=== PATIENT | female | born 1975 | race Caucasian/White ===

== ENCOUNTER 2016-12-28 20:48 | Emergency (ER) | payer OTHER ==
[~2016-12-28 20:48] MED LIST: ACETAMINOPHEN PO; ACTOS PO; ALBUTEROL SULFAT8 MG PO; ALBUTEROL17 G1 IH; ALBUTEROL17 GM INH; ALL DAY ALLERGY10 M2 PO; AMARYL PO; AMARYL2 MG PO; AMBIEN PO; AMITRIPTYLINE100 MG PO; AMITRYPTYLINE PO; AMOXICILLIN PO; AMOXICILLIN500 M1 PO; ANTIVERT PO; APIDRA (NF100 UNITS/ SUBQ; ASPIRIN PO; ASPIRIN81 M1 PO; ASPIRIN81 M2 PO; ATARAX PO; ATENOLOL PO; ATENOLOL25 MG PO; ATIVAN PO; BACTRIM DS TABL1 TA1 PO; BACTRIM DS TABL1 TA2 PO; BACTRIM DS TABL1 TAB PO; BACTROBAN22 GM TP; BENADRYL PO; BENZTROPINE MESY1 MG PO; CARVEDILOL12.5 MG PO; CELEXA PO; CEPHALEXIN250 MG PO; CETIRIZINE HCL10 MG PO; CETIRIZINE HCL5 MG PO; CHLORTHALIDONE25 MG PO; CLARITIN10 MG PO; COGENTIN PO; COGENTIN1 MG DOB; COGENTIN1 MG PO; COLACE PO; COMBIVENT INH14.7 GM INH; COREG12.5 MG PO; COUMADIN PO; COUMADIN10 MG PO; COUMADIN5 MG PO; CYMBALTA PO; DAKIN'S MODIF1000 ML EXT; DARVOCET-N 1001 TA1 PO; DEPAKOTE PO; DEPAKOTE250 MG PO; DESIPRAMINE HCL50 MG PO; DICLOFENAC PO; DILANTIN PO; DOCUSATE SODIU100 MG PO; DOLOBID500 MG PO; DOXYCYCLINE HY100 M3 PO; DOXYCYCLINE PO; DULERA 100 MCG/13 GM IH; EC-NAPROSYN500 MG PO; ECOTRIN325 MG PO; FLEXERIL PO; FLEXERIL10 MG PO; FLONASE 0.05% N16 G1; FUROSEMIDE40 MG PO; GABAPENTIN800 MG PO; GEODAN PO; GLIMEPIRIDE1 M1 PO; GLIPIZIDE10 MG PO; GLUCOTROL10 MG PO; GLUCOVANCE 5/501 TA1 PO; GLUCOVANCE 5/501 TA3 PO; HALDOL PO; HUMALOG100 U/ML SUBQ; IBUPROFEN PO; IMITREX50 MG PO; K-DUR10 MEQ PO; KEFLEX PO; KEPPRA1000 MG PO; KEPPRA500 MG PO; KEPPRA750 M1 PO; KEPPRA750 MG PO; KETOPROFEN PO; KLONOPIN; KLONOPIN PO; KLONOPIN1 MG PO; KLOR-CON SPRIN10 MEQ PO; LAMICTAL PO; LANTUS100 U/ML SUBQ; LASIX PO; LASIX20 MG PO; LATUDA60 MG PO; LEVEMIR SUBQ; LEVEMIR100 U/ML SQ; LEVEMIR100 UNITS/ SUBQ; LEVETIRACETAM750 M2 PO; LEXAPRO PO; LIPITOR20 MG PO; LISINOPRIL10 MG PO; LOPID600 MG PO; LOPRESSOR; LOVENOX100 MG/ML INJ; LOVENOX120 MG/0.8 INJ; MEDI-MECLIZINE25 M1 PO; METFORMIN HCL1000 M1 PO; MILK OF MAGNESIA PO; MIRTAZAPINE30 MG PO; MOTRIN400 MG PO; MOTRIN600 M1 PO; NAPROSYN250 M1 PO; NAPROXEN PO; NEURONTIN PO; NEURONTIN600 MG DOB; NITROGLYCERIN0.4 MG SL; NITROGYLCERIN; NITROGYLCERIN SUBLINGUAL; NITROQUICK0.4 MG SL; NITROSTAT0.4 MG SL; NOVOLOG100 U/M2 SQ; NOVOLOG100 U/ML SUBQ; ORUDIS75 M1 PO; PERCOCET 10/3251 TAB PO; PERCOCET PO; PERCOCET5/325 PO; PHENERGAN W/CO120 ML PO; PLAVIX PO; POTASSIUM CHLO10 ME1 PO; POTASSIUM CHLO10 MEQ PO; PROLIXIN10 MG; PROVENTIL2 MG PO; PROZAC; PROZAC40 M1 PO; QUETIAPINE FUM200 MG PO; REGLAN5 MG PO; REMERON PO; REMERON45 MG PO; REQUIP1 MG PO; RISPERDAL4 MG PO; RISPERIDONE PO; SEROQUEL; SEROQUEL PO; TEGRETOL PO; THORAZINE200 MG PO; TRAZODONE PO; TRILEPTAL PO; TRILEPTAL300 MG PO; TYLENOL #3 PO; TYLENOL325 M1 PO; TYLOX 5/500 CAP1 CAP PO; VICODIN 5/500 T1 TAB PO; VISTARIL50 MG PO; VITAMIN C500 MG PO; VOLMAX4 MG PO; VOLTAREN50 MG PO; WALGREENS; WARFARIN SODIUM10 M1 PO; XARELTO20 MG PO; ZESTRIL10 M1 PO; ZESTRIL10 M2 PO; ZOFRAN PO; ZYVOX600 MG PO
== END 2016-12-28 21:55 | disposition home or self-care (01) ==
LOC: CFTX 20:48
DX: S16.1XXA Strain of muscle, fascia and tendon at neck level, initial encounter (principal); E11.9 Type 2 diabetes mellitus without complications; I10 Essential (primary) hypertension; G40.909 Epilepsy, unspecified, not intractable, without status epilepticus; F17.210 Nicotine dependence, cigarettes, uncomplicated; Z90.710 Acquired absence of both cervix and uterus; Z98.890 Other specified postprocedural states; X58.XXXA Exposure to other specified factors, initial encounter; Y92.9 Unspecified place or not applicable
CPT/HCPCS: 99282; 99283

== ENCOUNTER 2017-01-16 23:12 | Emergency (ER) | payer OTHER ==
--- NOTE | ~2017-01-16 | CR72 ---
[facility] A Service of [facility] & [facility] RADIOLOGY TEXT RESULTS PATIENT: DAVINA DELGADO LOCATION: [place] : 73 UNIT #: [id number] AGE: [address]: YONNY GARZA APRN SEX: F ORDER DR: [id number] [facility] [address] [place], [place] [address] [id number] E MR#: [id number] Acc #: [id number] NAME: DAVINA DELGADO. : 1975 SEX: F STUDY DATE/TIME: 01/16/2017 22:55 UNIT: [facility] ROOM: STUDY DESCRIPTION: CR Chest Single View Portable Attending Physician: Yonny Garza Aprn Ordering Physician: Yonny Garza Aprn Primary Care Physician: Kerri Houser M.D. MEDICAL IMAGING REPORT This report is preliminary unless electronic signature is present EXAM Portable chest, 01/16/2017 at 22:55 INDICATION Right side lung pain with shortness of air and cough for 1 week, worse tonight. COMPARISON 11/12/2016 FINDINGS A single AP portable view of the chest shows both lungs to be clear. The heart is normal in size. The mediastinal contour is normal. No significant bone abnormalities are seen. IMPRESSION Normal portable chest. Dictated by... Rodriguez Goldberg Jr., M.D. THIS IS AN ELECTRONICALLY VERIFIED REPORT Rodriguez Goldberg Jr., M.D. at 01/17/2017 8:02 AM MARIO/zeny TD: 01/16/2017 23:22 JOB #: [id number] MEDICAL IMAGING REPORT Page 1 of 1 COPY
== END 2017-01-16 23:33 | disposition home or self-care (01) ==
LOC: CFTX 23:12
DX: S29.012A Strain of muscle and tendon of back wall of thorax, initial encounter (principal); I48.91 Unspecified atrial fibrillation; E11.9 Type 2 diabetes mellitus without complications; I10 Essential (primary) hypertension; G40.909 Epilepsy, unspecified, not intractable, without status epilepticus; F17.210 Nicotine dependence, cigarettes, uncomplicated; Z86.73 Personal history of transient ischemic attack (TIA), and cerebral infarction without residual deficits; Z90.49 Acquired absence of other specified parts of digestive tract; X58.XXXA Exposure to other specified factors, initial encounter; Y92.9 Unspecified place or not applicable
CPT/HCPCS: 71010; 99283

== ENCOUNTER 2017-03-14 20:15 | Emergency (ER) | payer OTHER | END 2017-03-15 01:45 | disposition home or self-care (01) | LOC: CED 20:15 | DX: L02.212 Cutaneous abscess of back [any part, except buttock and flank] (principal); I10 Essential (primary) hypertension; E11.9 Type 2 diabetes mellitus without complications; J45.909 Unspecified asthma, uncomplicated; Z86.73 Personal history of transient ischemic attack (TIA), and cerebral infarction without residual deficits; Z90.49 Acquired absence of other specified parts of digestive tract; F17.200 Nicotine dependence, unspecified, uncomplicated; Z88.6 Allergy status to analgesic agent; Z79.899 Other long term (current) drug therapy | CPT/HCPCS: 10060; 96372; 99284; J1170 ==

== ENCOUNTER 2017-04-13 08:56 | Emergency (ER) | payer OTHER ==
[~2017-04-13] VITALS: Ht 165.1 cm; Wt 73.5 kg
--- NOTE | ~2017-04-13 | EKG ---
PATIENT: DAVINA DELGADO UNIT #: [id number] Ventricular Rate: 80 BPM Atrial Rate: 80 BPM P-R Interval: 162 ms QRS Duration: 88 ms Q-T Interval: 368 ms QTC Calculation(Bezet): 424 ms P [place]: 31 degrees Calculated R [place]: 21 degrees Calculated T [place]: 35 degrees Diagnosis Line: Normal sinus rhythm Diagnosis Line: Normal ECG Diagnosis Line: When compared with ECG of 08-JUL-2016 18:47, Diagnosis Line: No significant change was found Diagnosis Line: Confirmed by DANITA LEAL MD ([id number]) on Diagnosis Line: 04/13/2017 1:34:24 PM INTERPRETING MD: ELVIS SAUER
--- NOTE | ~2017-04-13 | CR210 ---
[facility] A Service of [facility] RADIOLOGY TEXT RESULTS PATIENT: DAVINA DELGADO LOCATION: [facility] : 73 UNIT #: [id number] AGE: [address]: Jumana Arauz APRN SEX: F ORDER DR: [id number] [facility] [address] [place], [place] [address] [id number] E MR#: [id number] #: [id number] NAME: DAVINA DELGADO. : 1975 SEX: F STUDY DATE/TIME: 04/13/2017 09:45 UNIT: [facility] ROOM: STUDY DESCRIPTION: CR Ribs Uni 2 View W PA Ch Lt Attending Physician: Jumana Arauz A.P.R.N. Ordering Physician: Ed Doctor [id number] [facility] Primary Care Physician: Kerri Houser M.D. MEDICAL IMAGING REPORT This report is preliminary unless electronic signature is present EXAM Chest with left rib series, 04/13/2017 09:45 hours HISTORY Patient complains of left lower lateral rib pain for 3 days with no known injury. COMPARISON Chest film, 01/16/2017 FINDINGS Upright frontal view of the chest demonstrates normal cardiac, mediastinal and hilar contours. The lungs are well expanded and clear. There is no pleural effusion or pneumothorax. AP and oblique views of the left ribs demonstrate no rib lesion or rib fracture. IMPRESSION 1. Normal chest. 2. No rib lesion or rib fracture. No pleural effusion or pneumothorax. Dictated by... Vicky Hubbard M.D. THIS IS AN ELECTRONICALLY VERIFIED REPORT Vicky Hubbard M.D. at 04/13/2017 2:31 PM SILVIA/cleo TD: 04/13/2017 10:12 JOB #: [id number] MEDICAL IMAGING REPORT [facility] A Service of [facility] RADIOLOGY TEXT RESULTS PATIENT: DAVINA DELGADO LOCATION: [facility] : 73 UNIT #: [id number] AGE: [address]: Jumana Arauz APRN SEX: F ORDER DR: Page 1 of 1 COPY
[2017-04-13 09:35] LABS: BASOPHIL# 0.1 X10e3 (0-0.3); BASOPHIL% 1.1 % (0-2.5); EOSINOPHIL# 0.3 X10e3 (0-0.7); EOSINOPHIL% 5.2 % (0.0-7.0); HEMATOCRIT 33.3 % (35.0-45.0); HEMOGLOBIN 11.2 gm/dL (12.0-16.0); LYMPHOCYTE# 1.6 X10e3 (1.0-3.5); LYMPHOCYTE% 31.2 % (17.0-45.0); MEAN CELL VOLUME 79.7 FL (83-96); MEAN CORPUSCULAR HEMOGLOBIN 26.9 PG (28-34); MEAN CORPUSCULAR HGB CONC 33.7 g/dL (30-36); MEAN PLATELET VOLUME 7.2 FL (6.5-11.5); MONOCYTE# 0.5 X10e3 (0-1.0); MONOCYTE% 10.6 % (3.0-12.0); NEUTROPHIL# 2.7 X10e3 (1.5-7.1); NEUTROPHIL% 51.9 % (40-75); PLATELET COUNT 215 X10e3 (140-420); RED BLOOD COUNT 4.18 X10e (3.90-5.30); RED CELL DISTRIBUTION WIDTH 16.4 % (11.0-15.5); WHITE BLOOD COUNT 5.1 X10e3 (4.0-10.5)
[2017-04-13 09:36] LABS: DIFF IND NO
[2017-04-13 09:45] LABS: POC - CKMB <1.0 ng/mL (0.0-7.9); POC - TROPONIN <0.05 ng/mL (<=0.05)
[2017-04-13 10:06] LABS: ALBUMIN SERUM 3.9 g/dL (3.5-5.0); BILIRUBIN,TOTAL 0.7 mg/dL (0.2-2.0); BUN/CREATININE RATIO 12.85; CALCIUM SERUM 8.3 mg/dL (8.4-10.2); CREATININE SERUM 0.7 mg/dL (0.6-1.4); GLOM FILT RATE Estimated 106.9 mL/min (>60); POTASSIUM 4.1 mmol/L (3.5-5.1); PROTEIN TOTAL SERUM 6.3 g/dL (6.0-8.3)
== END 2017-04-13 11:00 | disposition home or self-care (01) ==
LOC: CED 08:56
PROVIDERS: Nurse Practitioner
DX: R07.89 Other chest pain (principal); E87.1 Hypo-osmolality and hyponatremia; E11.9 Type 2 diabetes mellitus without complications; F31.9 Bipolar disorder, unspecified; F17.210 Nicotine dependence, cigarettes, uncomplicated; Z88.8 Allergy status to other drugs, medicaments and biological substances; Z79.84 Long term (current) use of oral hypoglycemic drugs; Z79.899 Other long term (current) drug therapy
CPT/HCPCS: 36415; 71101; 80053; 82553; 83690; 84484; 85025; 93005; 96360; 99285